=== PATIENT | female | born 1935 | race Caucasian/White ===

== ENCOUNTER → 2024-06-07 10:14 | Outpatient (REF) | payer MEDICARE, OTHER, SELFPAY ==
[2024-06-07 11:54] LABS: ALT (SGPT) 26 U/L (0-35); AST (SGOT) 34 U/L (14-36); Albumin 4.3 g/dl (3.5-5.0); Alkaline Phosphatase 75 U/L (38-126); Blood Urea Nitrogen 24 mg/dl (7-17); Calcium 9.5 mg/dl (8.4-10.2); Carbon Dioxide 29 mmol/L (22-30); Chloride 98 mmol/L (98-107); Glucose 112 mg/dl (70-99); HDL Cholesterol 74 mg/dl; LDL Cholesterol, Calculated 75 mg/dl; Potassium 4.6 mmol/L (3.5-5.1); Sodium 135 mmol/L (135-145); Total Bilirubin 0.7 mg/dl (0.2-1.3); Total Cholesterol 171 mg/dl (50-199); Total Protein 6.6 g/dl (6.3-8.2); Triglyceride 114 mg/dl (10-149); Very Low Density Lipoprotein 22 mg/dl (0-30); eGFR > 60.00
[2024-06-07 11:55] LABS: Microalbumin, Random Urine <0.6 mg/dl (0.6-1.7)
[2024-06-07 12:22] LABS: TSH 1.36 uIU/ml (0.47-4.68)
[2024-06-07 14:21] LABS: % Basophils 0.5 % (0-2); % Eosinophils 3.8 % (0-6); % Immature Granulocytes 0.2 % (0-0.5); % Lymphocytes 15.9 % (20.5-51.1); % Monocytes 11.4 % (1.7-9.3); % Neutrophils 68.2 % (42.2-75.2); Absolute Eosinophils 0.2 10^3/uL (0-0.7); Absolute Lymphocytes 0.9 10^3/uL (1.2-3.4); Absolute Monocytes 0.6 10^3/uL (0.1-0.6); Absolute Neutrophils 3.8 10^3/uL (1.4-6.5); Hematocrit 41.9 % (37.0-47.0); Hemoglobin 14.2 g/dL (12.0-16.0); Mean Corp Hgb Conc. 33.9 g/dL (33.0-37.0); Mean Corpuscular Hgb 29.7 pg (27.0-31.0); Mean Corpuscular Volume 87.7 fL (81.0-99.0); Mean Platelet Volume 10.9 fL (7.4-10.4); Nucleated Red Blood Cells % 0 %; Platelet Count 192 10^3/uL (130-400); Red Blood Cell Count 4.78 10^6/uL (4.20-5.40); Red Cell Dist. Width 14.2 % (11.5-14.5); White Blood Cell Count 5.5 10^3/uL (4.8-10.8)
[2024-06-07 16:06] LABS: Glycohemoglobin (HgbA1c) 6.4 % (4.0-5.6)
== END ==
LOC: REG 10:14
PROVIDERS: ATTENDING PHYSICIAN Internal Medicine
DX: I10 Essential (primary) hypertension (principal); E11.9 Type 2 diabetes mellitus without complications; E03.9 Hypothyroidism, unspecified; R26.81 Unsteadiness on feet; R53.83 Other fatigue; E78.00 Pure hypercholesterolemia, unspecified
CPT/HCPCS: 36415; 80053; 80061; 82043; 82570; 83036; 84443; 85025

== ENCOUNTER → 2024-08-06 11:13 | Outpatient (REF) | payer MEDICARE, OTHER, SELFPAY | LOC: RCS 11:13 | PROVIDERS: ATTENDING PHYSICIAN Internal Medicine Cardiovascular Disease; FAMILY PHYSICIAN Internal Medicine | DX: I48.0 Paroxysmal atrial fibrillation (principal); I10 Essential (primary) hypertension; I51.7 Cardiomegaly | CPT/HCPCS: 93306 ==

== ENCOUNTER → 2025-01-05 09:06 | Outpatient (REF) | payer MEDICARE, OTHER, SELFPAY ==
[2025-01-05 11:51] LABS: Glycohemoglobin (HgbA1c) 6.4 % (4.0-5.6)
[2025-01-05 12:57] LABS: TSH Reflex To Free T4 2.44 uIU/ml (0.47-4.68)
[2025-01-05 13:25] LABS: ALT (SGPT) 25 U/L (0-35); AST (SGOT) 29 U/L (14-36); Albumin 4.3 g/dl (3.5-5.0); Alkaline Phosphatase 75 U/L (38-126); Blood Urea Nitrogen 20 mg/dl (7-17); Calcium 9.4 mg/dl (8.4-10.2); Carbon Dioxide 26 mmol/L (22-30); Chloride 100 mmol/L (98-107); Glucose 112 mg/dl (70-99); HDL Cholesterol 70 mg/dl; LDL Cholesterol, Calculated 75 mg/dl; Potassium 4.5 mmol/L (3.5-5.1); Sodium 136 mmol/L (135-145); Total Bilirubin 0.6 mg/dl (0.2-1.3); Total Cholesterol 167 mg/dl (50-199); Total Protein 6.6 g/dl (6.3-8.2); Triglyceride 113 mg/dl (10-149); Very Low Density Lipoprotein 22 mg/dl (0-30); eGFR > 60.00
== END ==
LOC: REG 09:06
PROVIDERS: ATTENDING PHYSICIAN Internal Medicine
DX: E03.9 Hypothyroidism, unspecified (principal); E11.9 Type 2 diabetes mellitus without complications; I10 Essential (primary) hypertension
CPT/HCPCS: 36415; 80053; 80061; 83036; 84443

== ENCOUNTER 2025-06-03 14:37 | Emergency (ER) | payer MEDICARE, OTHER, SELFPAY ==
[2025-06-03 14:40] VITALS: BP 215/98
[2025-06-03 16:48] VITALS: BP 205/90
[2025-06-03] MEDS: ADACEL 0.5 ML IM (17:35)
[2025-06-03] MEDS: ZESTRIL 20 MG PO (17:35)
[2025-06-03 17:56] LABS: Hematocrit 43.1 % (37.0-47.0); Hemoglobin 14.5 g/dL (12.0-16.0); Mean Corp Hgb Conc. 33.6 g/dL (33.0-37.0); Mean Corpuscular Volume 86.9 fL (81.0-99.0); Nucleated Red Blood Cells % 0 %; Platelet Count 187 10^3/uL (130-400); Red Cell Dist. Width 13.7 % (11.5-14.5)
[2025-06-03 18:11] LABS: ALT (SGPT) 23 U/L (0-35); AST (SGOT) 36 U/L (14-36); Albumin 4.5 g/dl (3.5-5.0); Alkaline Phosphatase 61 U/L (38-126); Blood Urea Nitrogen 16 mg/dl (7-17); Calcium 9.3 mg/dl (8.4-10.2); Carbon Dioxide 26 mmol/L (22-30); Chloride 101 mmol/L (98-107); Glucose 199 mg/dl (70-99); Potassium 4.3 mmol/L (3.5-5.1); Sodium 136 mmol/L (135-145); Total Protein 7.3 g/dl (6.3-8.2); eGFR > 60.00
[2025-06-03 18:23] VITALS: BP 203/87
--- NOTE | 2025-06-03 18:24 | ED.GENMED ---
History of Present Illness
General
Chief Complaint: Head Injury
Source: patient
Exam Limitations: none
Time Seen by Provider: 06/03/25 15:53
Nursing documentation reviewed up to this point in time: agreed with
History of Present Illness
History of Present Illness:
89-year-old female past medical history of hypertension diabetes hypothyroidism presenting to the emergency department today with concerns of a fall where she felt lightheaded. She claims that she was out all morning did not drink or eat enough in
her opinion. Sustained a laceration to the left side otherwise feels well at this point otherwise. Was able to drink some Gatorade. Denies any chest pain palpitations shortness of breath.
Past History
Past History
ED Past Medical History: HTN, Hypercholesterolemia and NIDDM
ED Past Surgical History: Gynecological and Orthopedic
Social History
Tobacco: Non-smoker
Employment: Retired (Physician)
Review of Systems
Review of Systems
Allergies reviewed?: Yes
All Other Systems: ROS reviewed and negative except as documented in HPI and ROS
Phy Exam
Physical Exam
Physical Exam:
GENERAL: Alert , in no apparent distress
EYE: pupils equal and reactive
NECK: Supple, no significant adenopathy.
ENT: Laceration to left posterior scalp with small amount of bleeding o/p clr, mmm.
CARDIAC: Regular rate and rhythm .
LUNGS: Clear breath sounds bilaterally, no acute respiratory distress, no wheezes/rales/rhonchi
ABDOMEN: Soft, without focal tenderness, no r/g, no cvat
NEUROLOGICAL: Alert and oriented, no focal neuro deficits
SKIN: Warm and dry, skin intact.
MUSCULOSKELETAL: No edema, well perfused.
PSYCH: Normal and appropriate interaction.
Course
Orders/Labs/Results
Orders:
Orders
06/03/25 14:41
CT Cervical Spine W/o Iv Contr Urgent
Comment:
Reason For Exam: fall on thinner
CT Head W/o Iv Contrast Urgent
Comment:
Reason For Exam: fall on thinner
06/03/25 17:30
EKG [Electrocardiogram (*1)] Urgent
Reason for Study: Fatigue / Weakness
EKG- Treatment ONCE
Lisinopril [Zestril] 20 mg PO NOW STA
Tetanus/Diphth/Acelpertussis [Adacel] 0.5 ml IM .ONCE ONE
06/03/25 17:46
CBC/With Diff [Complete Blood Count/With Diff] Urgent
CMP [Comprehensive Metabolic Panel] Urgent
Abnormal Lab Results
06/03/25
17:46
Absolute Neuts (auto) 8.2 H 10^3/uL
(1.4-6.5)
Absolute Lymphs (auto) 1.1 L 10^3/uL
(1.2-3.4)
Absolute Monos (auto) 0.9 H 10^3/uL
(0.1-0.6)
Neutrophils % 78.6 H %
(42.2-75.2)
Lymphocytes % 10.9 L %
(20.5-51.1)
Glucose 199 H mg/dl
(70-99)
06/03/25 17:46
06/03/25 17:46
Vital Signs
Initial and Last Documented VS:
Initial Vital Signs
Temp Pulse Resp BP Pulse Ox
98.1 F 59 16 215/98 98
06/03/25 14:40 06/03/25 14:40 06/03/25 14:40 06/03/25 14:40 06/03/25 14:40
Last Documented Vital Signs
Temp Pulse Resp BP Pulse Ox
98.1 F 61 16 203/87 99
06/03/25 14:40 06/03/25 18:23 06/03/25 18:23 06/03/25 18:23 06/03/25 18:23
MDM/Problems Addressed
MDM/Problems Addressed:
89-year-old female presenting to the emergency department today with concerns of a fall after feeling lightheaded earlier today. She claims that she believes that she has not eaten or drank appropriately today thinks this can cause the symptoms.
Otherwise feels well at this point does of a laceration to the left posterior scalp. This was cleaned thoroughly and closed with [address] scan of the head and neck without emergent findings. EKG normal no signs of ischemia. Labs
unremarkable. No evidence of any emergent process causing symptoms earlier today. Return precautions given otherwise stable for outpatient management.
*Pulse Oximetry
SaO2: 99
Oxygen Mode of Delivery: Room air
Patient hypoxic: no (99)
*Critical Care Note
Total Time (30-74mins, 75-104mins- exclusive of procedures): Not Applicable
ED Attending Note
-
Portions of this chart may have been created with voice recognition software.� Occasional wrong word or��sound alike� substitutions may have occurred due to the inherent limitations of voice recognition software.
Discharge Plan
Departure
Patient Disposition: Home (Routine Discharge)
Date of Disposition: 06/03/25
Time of Disposition: 18:24
Patient with high blood pressure during this ER visit?: No
Condition: Good
Covid-19: Not Applicable
Discharge Problem:
Fall, Laceration of scalp, High blood pressure
Instructions: Laceration Repair With [place] (DC), BLOOD PRESSURE
Referrals:
Kimberly Marks MD [Family Provider, Internal Medicine]
Activity Restrictions/Additional Instructions:
You came to the emergency department today after a fall and lightheadedness. Here you had a normal head and neck CT normal labs as well as a reassuring EKG. You had 5 kali placed. Please keep the area clean and use antibiotic ointment and
follow-up in 7 days for staple removal. Also your blood pressure was elevated here. Please keep an eye on this at home and follow-up closely as an outpatient for this. Return for any worsening, new or concerning symptoms.
Interventions
Interventions:
*Risk Screen - Suicide Last Done: 06/03/25 14:40
*General Assessment Last Done: 06/03/25 16:48
*Neglect/Abuse Screening Last Done: 06/03/25 14:40
*ED- Fall Risk Assessment Last Done: 06/03/25 16:48
*ED COVID-19 Vaccine History Last Done: 06/03/25 16:48
ED- Neurological Assessment Last Done: 06/03/25 15:49
ED-Skin Assessment Last Done: 06/03/25 15:49
Discharge Date and Time
Print Language: KOREAN
== END 2025-06-03 18:34 | disposition home or self-care (01) ==
LOC: EMR 14:37
PROVIDERS: Physician Assistant; EMERGENCY PHYSICIAN Emergency Medicine; FAMILY PHYSICIAN Internal Medicine
DX: S01.01XA Laceration without foreign body of scalp, initial encounter (principal); I10 Essential (primary) hypertension; W19.XXXA Unspecified fall, initial encounter; Z23 Encounter for immunization; E11.9 Type 2 diabetes mellitus without complications; E03.9 Hypothyroidism, unspecified; E78.00 Pure hypercholesterolemia, unspecified
CPT/HCPCS: 99284; 12001; 90471; 70450; 72125; 80053; 85025; 90715; 93005

== ENCOUNTER → 2025-08-12 09:39 | Outpatient (REF) | payer MEDICARE, OTHER, SELFPAY ==
[2025-08-12 11:23] LABS: Microalb - Urine Creatinine 35.600 mg/dl
[2025-08-12 11:24] LABS: Microalbumin, Random Urine 1.2 mg/dl (0.6-1.7)
[2025-08-12 11:25] LABS: ALT (SGPT) 26 U/L (0-35); AST (SGOT) 28 U/L (14-36); Albumin 4.7 g/dl (3.5-5.0); Alkaline Phosphatase 74 U/L (38-126); Blood Urea Nitrogen 14 mg/dl (7-17); Calcium 9.5 mg/dl (8.4-10.2); Carbon Dioxide 30 mmol/L (22-30); Chloride 100 mmol/L (98-107); Glucose 111 mg/dl (70-99); HDL Cholesterol 80 mg/dl; LDL Cholesterol, Calculated 76 mg/dl; Potassium 4.4 mmol/L (3.5-5.1); Sodium 139 mmol/L (135-145); Total Protein 7.5 g/dl (6.3-8.2); Very Low Density Lipoprotein 34 mg/dl (0-30); eGFR > 60.00
[2025-08-12 12:29] LABS: Glycohemoglobin (HgbA1c) 6.5 % (4.0-5.9)
== END ==
LOC: REG 09:39
PROVIDERS: ATTENDING PHYSICIAN Internal Medicine
DX: E11.9 Type 2 diabetes mellitus without complications (principal); E03.9 Hypothyroidism, unspecified; E78.5 Hyperlipidemia, unspecified
CPT/HCPCS: 36415; 80053; 80061; 82043; 82570; 83036; 84443

== ENCOUNTER → 2025-09-23 10:44 | Outpatient (REF) | payer MEDICARE, OTHER, SELFPAY | LOC: RAD 10:44 | PROVIDERS: ATTENDING PHYSICIAN Internal Medicine | DX: M54.50 Low back pain, unspecified (principal); W57.XXXA Bitten or stung by nonvenomous insect and other nonvenomous arthropods, initial encounter | CPT/HCPCS: 36415; 72110; 86618 ==